=== PATIENT | female | born 1950 | race African-American/Black ===

== ENCOUNTER 2018-05-20 09:58 | Emergency (ER) | payer OTHER ==
[~2018-05-20] VITALS: Ht 157.5 cm; Wt 72.6 kg
[2018-05-20 10:54] VITALS: BP 157/81
[2018-05-20] MEDS ORDERED: KETOROLAC TROMETH 60MG/2ML VIAL IM ONE (12:15)
== END 2018-05-20 12:38 | disposition home or self-care (01) ==
LOC: ER 09:58
DX: M17.11 Unilateral primary osteoarthritis, right knee (principal); L73.9 Follicular disorder, unspecified
CPT/HCPCS: 73562; 93971; 96372; 99284; J1885

== ENCOUNTER 2020-04-13 15:03 | Emergency (ER) | payer MEDICARE, OTHER ==
[~2020-04-13] VITALS: Ht 157.5 cm; Wt 69.4 kg
[2020-04-13] MEDS ORDERED: ALBUTEROL SULF 2.5 MG/0.5ML(0.5%) NEB SOLN NEB ONE (15:15)
[2020-04-13] MEDS ORDERED: methylPREDNISolone SOD SUCC 125 MG/2 ML VL IM ONE (15:15)
[2020-04-13 15:21] VITALS: BP 149/87
[2020-04-13] MEDS ORDERED: predniSONE 20 MG TAB PO ONE (16:00)
== END 2020-04-13 18:30 | disposition home or self-care (01) ==
LOC: EDBD 15:03 → ER 15:03
DX: J44.1 Chronic obstructive pulmonary disease with (acute) exacerbation (principal); Z20.822 Contact with and (suspected) exposure to COVID-19; R06.02 Shortness of breath; R05 Cough
CPT/HCPCS: 36415; 71045; 87426; 99284; J7512